=== PATIENT | female | born 1950 | race Two or more races ===

== ENCOUNTER → 2018-01-28 | Outpatient (CLI) | payer OTHER ==
--- NOTE | 2018-01-29 09:05 | RAD ---
DATE: January 28, 2018 EXAM: DIGITAL SCREEN BILAT W/CAD HISTORY: Routine screening. COMPARISON: None. Baseline in a 67-year-old. TECHNIQUE: 2D digital CC and MLO views of each breast were obtained. This study was interpreted with the benefit of Computerized Aided Detection (CAD). FINDINGS: The breast parenchyma is heterogeneously dense, category C, which may obscure small masses. There is no worrisome mass or area of architectural distortion. There are no suspicious groupings of microcalcifications. There are a few benign-appearing calcifications. IMPRESSION: Benign findings. BI-RADS CATEGORY: 2 BENIGN FINDING RECOMMENDED FOLLOW-UP: 12M 12 MONTH FOLLOW-UP PQRS compliance statement: Patient information was entered into a reminder system with a target due date for the next mammogram. Mammography is a sensitive method for finding small breast cancers, but it does not detect them all and is not a substitute for careful clinical examination. A negative mammogram does not negate a clinically suspicious finding and should not result in delay in biopsying a clinically suspicious abnormality. "Our facility is accredited by the [employer]."
== END | disposition home or self-care (01) ==
LOC: MAMMO 10:01
DX: Z12.31 Encounter for screening mammogram for malignant neoplasm of breast (principal)
CPT/HCPCS: 77063; 77067

== ENCOUNTER → 2020-10-26 | Outpatient (CLI) | payer OTHER ==
--- NOTE | 2020-10-28 18:26 | RAD ---
DATE: 10/26/2020 EXAM: DIGITAL SCREEN BILAT W/CAD HISTORY: Screening COMPARISON: 01/28/2018 This study was interpreted with the benefit of Computerized Aided Detection (CAD). Breast Density: HETERO The breast parenchyma is heterogenously dense, which could reduce sensitivity of mammography. Breast parenchyma level C. FINDINGS: No mass, suspicious calcification, or architectural distortion in either breast. IMPRESSION: No evidence of malignancy. BI-RADS CATEGORY: 1 NEGATIVE RECOMMENDED FOLLOW-UP: 12M 12 MONTH FOLLOW-UP PQRS compliance statement: Patient information was entered into a reminder system with a target due date for the next mammogram. Mammography is a sensitive method for finding small breast cancers, but it does not detect them all and is not a substitute for careful clinical examination. A negative mammogram does not negate a clinically suspicious finding and should not result in delay in biopsying a clinically suspicious abnormality. "Our facility is accredited by the [employer]amm[employer]."
== END ==
LOC: MAMMO 11:24
PROVIDERS: ATTEND Nurse Practitioner Family
DX: Z12.31 Encounter for screening mammogram for malignant neoplasm of breast (principal)
CPT/HCPCS: 77067